=== PATIENT | male | born 1965 | race Caucasian/White ===

== ENCOUNTER 2018-03-01 00:47 | Emergency (ER) | payer BC ==
[~2018-03-01] VITALS: Ht 175.3 cm; Wt 83.9 kg
[2018-03-01] MEDS ORDERED: LISINOPRIL10 MG (01:33)
[2018-03-01] MEDS ORDERED: AZITHROMYCIN500 MG (01:34)
== END 2018-03-01 13:49 | disposition home or self-care (01) ==
LOC: ER 00:47
DX: I10 Essential (primary) hypertension (principal)